=== PATIENT | female | born 1955 | race Caucasian/White ===

== ENCOUNTER 2017-02-17 17:32 | Emergency (ER) | payer OTHER ==
[~2017-02-17] VITALS: Ht 149.9 cm; Wt 81.6 kg
[2017-02-17 17:56] VITALS: Ht 149.9 cm; Wt 81.6 kg
[2017-02-17 19:22] VITALS: BP 138/87
== END 2017-02-17 19:22 | disposition home or self-care (01) ==
LOC: ED 17:32
DX: S92.352A Displaced fracture of fifth metatarsal bone, left foot, initial encounter for closed fracture (principal); I10 Essential (primary) hypertension; E07.9 Disorder of thyroid, unspecified; X50.9XXA Other and unspecified overexertion or strenuous movements or postures, initial encounter; Y93.89 Activity, other specified; Y99.8 Other external cause status; Y92.89 Other specified places as the place of occurrence of the external cause